=== PATIENT | male | born 1975 | race Hispanic/Latino ===

== ENCOUNTER 2017-02-28 15:46 | Emergency (ER) | payer OTHER ==
[2017-02-28] MEDS ORDERED: LIDOCAINE 5% TOPICAL PATCH TP ONE (16:31)
[2017-02-28] MEDS ORDERED: KETOROLAC TROMETHAMINE 60 MG/2 ML VIAL ONE (16:31)
[2017-02-28 16:34] LABS: APPEARANCE,URINE Clear (CLEAR); BILIRUBIN,URINE Negative (NEGATIVE); COLOR,URINE Yellow (YELLOW); GLUCOSE, URINE (UA) Negative (NEGATIVE); KETONES,URINE Negative (NEGATIVE); LEUKOCYTE ESTERASE ,URINE Negative (NEGATIVE); NITRATE,URINE Negative (NEGATIVE); OCCULT BLOOD,URINE Negative (NEGATIVE); PROTEIN,URINE Negative (NEGATIVE); UROBILINOGEN,URINE 0.2 mg/dL (0.2-1.0)
== END 2017-02-28 16:53 | disposition home or self-care (01) ==
LOC: EDH 15:46
DX: M62.830 Muscle spasm of back (principal)
CPT/HCPCS: 81003; 96372; 99285; J1885; 71020

== ENCOUNTER 2020-08-12 03:09 | Emergency (ER) | payer OTHER ==
[2020-08-12 03:14] VITALS: BP 162/68
[2020-08-12] MEDS ORDERED: PREDNISONE 20 MG TABLET PO SCH (03:30)
[2020-08-12] MEDS ORDERED: DiphenhydrAMINE HCL 50 MG/ML VIAL IM ONE (03:30)
[2020-08-12] MEDS ORDERED: PRED50TA2 PO (03:31)
== END 2020-08-12 04:20 | disposition home or self-care (01) ==
LOC: EDH 04:20
DX: T78.49XA Other allergy, initial encounter (principal); N48.89 Other specified disorders of penis; X58.XXXA Exposure to other specified factors, initial encounter
CPT/HCPCS: 96372; 99283; J1200